=== PATIENT | male | born 1960 | race Caucasian/White ===

== ENCOUNTER 2021-01-07 17:15 | Emergency (ER) | payer OTHER ==
[~2021-01-07] VITALS: Ht 170.2 cm; Wt 74.8 kg
[~2021-01-07 17:15] MED LIST: AUGMENTIN 875875 MG PO; FENTANYL PA50 MCG/HR TRANSDERM; OXYCODONE HCL 55 MG PO; PROTONIX PO; PROTONIX40 M1 PO; TRAZODONE HCL50 MG PO; [UNRECOGNIZED DRUG - OTHER] TOP
[2021-01-07] MEDS ORDERED: SYMBICORT80 MCG/4.1 INH (17:30)
[2021-01-07] MEDS ORDERED: PROAIR HFA8.5 GM INH (17:30)
[2021-01-07] MEDS ORDERED: FLONASE 0.05%50 MCG NASAL (17:30)
[2021-01-07] MEDS ORDERED: SINGULAIR 10 MG10 MG PO (17:30)
[2021-01-07 20:33] LABS: ABSOLUTE BASOPHILS 0.1 thou/uL (0.0-0.2); ABSOLUTE LYMPHOCYTES 3.6 thou/uL (0.8-5.3); ABSOLUTE MONOCYTES 0.9 thou/uL (0.0-1.2); ABSOLUTE NEUTROPHILS 3.7 thou/uL (1.6-8.1); BASOPHILS 0.8 %; EOSINOPHILS 0.4 %; HEMATOCRIT 42.7 % (42.0-52.0); HEMOGLOBIN 14.4 gm/dL (14.0-18.0); LYMPHOCYTES 43.6 %; MCH 29.3 pg (26.0-34.0); MCHC 33.7 g/dL (28.0-37.0); MCV 86.9 fL (80.0-100.0); MONOCYTES 10.3 %; MPV 7.9 fl. (7.2-11.1); NUCLEATED RBCS 0 /100WBC; PLATELET COUNT* 222 thou/uL (150-400); POLYS 44.9 %; RBC 4.92 mil/uL (4.50-6.00); RDW-CV 13.9 % (10.5-14.5); WBC 8.3 thou/uL (4.0-11.0)
[2021-01-07 20:40] LABS: CALCIUM 8.2 mg/dL (8.5-10.1); CREATININE 1.2 mg/dL (0.6-1.3); POTASSIUM 4.3 mmol/L (3.5-5.1)
[2021-01-07 20:51] LABS: ALBUMIN 3.3 g/dL (3.4-5.0); MAGNESIUM 2.2 mg/dL (1.8-2.4); TOTAL BILIRUBIN 0.5 mg/dL (<0.1-1.0); TOTAL PROTEIN 7.1 g/dL (6.4-8.2)
[2021-01-08 00:17] VITALS: BP 108/69
--- NOTE | 2021-01-08 09:43 | EKG ---
[place] [address] ELECTROCARDIOGRAM REPORT Name: MARIAELENA UREÑA Room: [facility]#: [id number] Admission: 01/07/21 Attend Phys: Discharge: 01/08/21 Date of : 60 Date of Service: 01/07/21 1721 Report #: [id number] THIS REPORT FOR: //name// [facility] ED Test Date: 2021-01-07 Test Time: 17:21:57 Pat Name: MARIAELENA UREÑA Department: Room: Gender: Lead Sales Consultant: : 1960 Requested By: Genesis Robins Order Number: [id number] MD: Demetri Nur Measurements Intervals [place] Rate: 71 P: 17 KS: 171 QRS: 0 QRSD: 87 T: 22 QT: 383 QTc: 417 Interpretive Statements Sinus rhythm Baseline wander in lead(s) II,III,aVF Compared to ECG 01/14/2015 12:38:12 Sinus bradycardia no longer present Electronically Signed On 01-08-2021 9:43:36 CDT by Demetri Nur [email or web address] <ELECTRONICALLY SIGNED> By: Demetri Nur MD, [facility] 01/08/21 0943 1721 1721 Demetri Nur MD, [facility] /EPI
--- NOTE | 2021-01-08 14:34 | EKG ---
[place] [address] ELECTROCARDIOGRAM REPORT Name: MARIAELENA UREÑA Room: [facility]#: [id number] Admission: 01/07/21 Attend Phys: Discharge: 01/08/21 Date of : 60 Date of Service: 01/07/212010 Report #: [id number] THIS REPORT FOR: //name// [facility] ED Test Date: 2021-01-07 Test Time: 20:11:24 Pat Name: MARIAELENA UREÑA Department: Room: Gender: Payroll And Benefits Coordinator: EH : 1960 Requested By: Genesis Robins Order Number: [id number] Katey MD: Demetri Nur Measurements Intervals [place] Rate: 59 P: 26 MA: 178 QRS: 28 QRSD: 89 T: 6 QT: 402 QTc: 399 Interpretive Statements Sinus rhythm Compared to ECG 01/07/2021 17:21:57 No significant changes Electronically Signed On 01-08-2021 14:34:27 CDT by Demetri Nur [email or web address] <ELECTRONICALLY SIGNED> By: Demetri Nur MD, [facility] 01/08/21 1434 10 10 Demetri Nur MD, [facility] /EPI
== END 2021-01-08 00:18 | disposition home or self-care (01) ==
LOC: M.ERS 17:15
PROVIDERS: Emergency Medicine
DX: R07.89 Other chest pain (principal); Z20.822 Contact with and (suspected) exposure to COVID-19; R06.02 Shortness of breath; R42 Dizziness and giddiness; R91.1 Solitary pulmonary nodule; E86.0 Dehydration; K21.9 Gastro-esophageal reflux disease without esophagitis; Z98.890 Other specified postprocedural states; Z79.2 Long term (current) use of antibiotics; Z79.899 Other long term (current) drug therapy

== ENCOUNTER → 2021-01-19 | Outpatient (CLI) | payer OTHER ==
[~2021-01-19] MED LIST changes: +FLONASE 0.05%50 MCG NASAL; +PROAIR HFA8.5 GM INH; +PROTONIX 20 MG20 MG PO; +SINGULAIR 10 MG10 MG PO; +SYMBICORT80 MCG/4.1 INH; +ZINC-22050 MG PO; +aspirin PO
--- NOTE | 2021-01-19 16:28 | EXE ---
[place] [address] STRESS ECHOCARDIOGRAM Name: MARIAELENA UREÑA Room: [facility]#: [id number] Admission: 01/19/21 Attend Phys: Brisa Gilbert RN Discharge: Date of : 60 Date of Service: 01/19/21 1628 Report #: [id number] THIS REPORT FOR: cc: Gary Nixon Ahmad W. DO Liston, Michael J. MD [facility] ~ APPROVED REPORT Study performed: 01/19/2021 15:01:59 Exam: Stress Echocardiogram Indication: Chest pain , Dyspnea Patient Location: Out-Patient Stress Nurse: Niecy Reza RN Supervising Physician: Sergio English MD Status: routine Ht: 5 ft 7 in HR: 60 bpm BP: 104/64 mmHg Rhythm: NSR Medical History Medications: ASA Allergies: No known drug allergies Cardiac Risk Factors: AGE Procedure The patient underwent an Exercise Stress Test using the Daryl Protocol. Blood pressure, heart rate, and EKG were monitored. An Echocardiogram was performed by remediation technician in four stages in quad fashion. At peak stress, four selected images were obtained and placed side by side with resting images for comparison. Stress Test Details Stress Test: Exercise stress testing was performed using a Daryl protocol. HR Resting HR: 60 bpm Max Heart Rate (APMHR): 160 bpm Max HR Achieved: 167 bpm Target HR (85% APMHR): 136 bpm % of APMHR: 104 Recovery HR: 75 bpm HR response to stress: [place] [address] STRESS ECHOCARDIOGRAM Name: MARIAELENA UREÑA Room: [facility]#: [id number] Admission: 01/19/21 Attend Phys: Brisa Gilbert RN Discharge: Date of : 60 Date of Service: 01/19/21 1628 Report #: [id number] Resting BP: 104/64 mmHg Max BP: 136/74 mmHg Recovery BP: 125/87 mmHg BP response to stress: Normal blood pressure response to stress. ECG Resting ECG: Sinus Rhythm Stress ECG: Sinus Tachycardia ST Change: None Arrhythmia: APC's Recovery ECG: Sinus Rhythm Recovery ST Change: None Recovery Arrhythmia: None Clinical Reason for Termination: Maximal effort Exercise duration: 11 min 6 sec Highest Stage Achieved: Stage 4: 4.2 mph at 16% grade. Exercise capacity: 13.48 METs The patient exhibited good exercise tolerance on the standard Daryl protocol. There were no symptoms to suggest angina. Stress ECG Conclusion The baseline twelve-lead EKG shows sinus rhythm without significant ST segment or T wave abnormality. EKGs obtained during the post exercise show sinus rhythm and sinus tachycardia with no significant ST segment or T wave changes when compared to baseline. The patient had frequent premature atrial contractions at peak exercise that resolved in recovery. Pre-Stress Echo The resting Echocardiogram showed normal left ventricular contractility with an estimated Ejection Fraction of about 60-65%. The resting echocardiogram demonstrated normal wall motion in all wall segments. Post-Stress Echo The stress Echocardiogram showed normal left ventricular contractility with an estimated Ejection Fraction of about >70%. Compared to rest, there were no stress-induced wall motion abnormalities. Conclusion Clinical Response: Non-ischemic Exercise Capacity: Superior Stress ECG Response: [place] [address] STRESS ECHOCARDIOGRAM Name: MARIAELENA UREÑA Room: [facility]#: [id number] Admission: 01/19/21 Attend Phys: Brisa Gilbert RN Discharge: Date of : 60 Date of Service: 01/19/211627 Report #: [id number] Stress Echo Images: Non-ischemic Other Information Study Quality: Good <ELECTRONICALLY SIGNED> By: Sergio English MD, FACC 01/19/218 27 27 Sergio English MD, FACC /INF
== END ==
LOC: M.CRD 14:42
PROVIDERS: ATTEND Registered Nurse
DX: R07.9 Chest pain, unspecified (principal)